=== PATIENT | male | born 1980 | race Asian ===

== ENCOUNTER 2024-04-24 09:28 | Outpatient (CLI) | payer OTHER ==
--- NOTE | 2024-04-24 11:31 | XRAY Report ---
PROCEDURE: Shoulder 2+V BL INDICATIONS: BILATERAL SHOULDER JOINT PAIN TECHNIQUE: 3 views of the bilateral shoulders were acquired. COMPARISON: None. FINDINGS: Bones: No fractures or dislocations. No suspicious bony lesions. Visualized ribs appear intact. Soft tissues: No suspicious soft tissue calcifications. The visualized lungs are within normal limi ts. IMPRESSION: No acute bony abnormality. No significant degenerative change identified. Reviewed by: Gerard Cano MD on 04/24/2024 11:30 AM PDT Approved by: Gerard Cano MD on 04/24/2024 11:30 AM PDT Station ID: [id number]
== END 2024-04-24 09:29 | disposition home or self-care (01) ==
LOC: DI 09:28
PROVIDERS: ATTEND Nurse Practitioner Family
DX: M25.511 Pain in right shoulder (principal); M25.512 Pain in left shoulder